=== PATIENT | male | born 1975 | race Caucasian/White ===

== ENCOUNTER 2023-02-17 22:32 | Emergency (ER) | payer BC ==
[~2023-02-17] VITALS: Ht 182.9 cm; Wt 72.6 kg
[2023-02-17 22:40] VITALS: BP 140/95; PULSE 76; RESP 17; TEMP 98.6; O2SAT 99
--- NOTE | 2023-02-17 22:43 | NUR ---
TO LOBBY A/W BED AMBULATORY
--- NOTE | 2023-02-17 23:40 | NUR ---
SEEN AND EXAMINED BY POOJA
[2023-02-17] MEDS ORDERED: IBUP-2213 PO (23:48)
[2023-02-18 00:01] VITALS: BP 140/95; PULSE 76; RESP 17; TEMP 98.6; O2SAT 99
--- NOTE | 2023-02-18 00:39 | NUR ---
pt made aware of covid result, car landeroslo updated.
== END 2023-02-18 00:01 | disposition home or self-care (01) ==
LOC: MED 22:32
DX: U07.1 COVID-19 (principal); B34.9 Viral infection, unspecified; R05.9 Cough, unspecified; I10 Essential (primary) hypertension; Z79.899 Other long term (current) drug therapy
CPT/HCPCS: 99283